=== PATIENT | female | born 1935 | race Caucasian/White ===

== ENCOUNTER 2019-12-22 06:49 | Day surgery (SDC) | payer MEDICARE ==
[~2019-12-22] VITALS: Ht 157.5 cm; Wt 72.6 kg
[~2019-12-22 06:49] MED LIST: SODIUM CHLORIDE 0.9% 1000ML 1,000 ML IV ONE
[2019-12-22 07:45] VITALS: BP 183/91; PULSE 87; RESP 17; TEMP 97.1
[2019-12-22] MEDS ORDERED: PROPOFOL 10 MG/ML 20ML VIAL IV ONE (09:41)
[2019-12-22 10:01] VITALS: BP 124/46; PULSE 60; RESP 20; TEMP 97.3
[2019-12-22 10:06] VITALS: BP 129/51; PULSE 66; RESP 16
[2019-12-22 10:11] VITALS: BP 140/53; PULSE 64; RESP 18
[2019-12-22 10:20] VITALS: BP 135/63; PULSE 60; RESP 18
== END 2019-12-22 10:38 | disposition home or self-care (01) ==
LOC: DAH 06:49
PROVIDERS: ATTEND Internal Medicine Gastroenterology
DX: Z09 Encounter for follow-up examination after completed treatment for conditions other than malignant neoplasm (principal); D12.5 Benign neoplasm of sigmoid colon; Z86.010 Personal history of colon polyps; I10 Essential (primary) hypertension; I48.91 Unspecified atrial fibrillation; E78.5 Hyperlipidemia, unspecified; Z90.710 Acquired absence of both cervix and uterus; Z80.0 Family history of malignant neoplasm of digestive organs; Z11.59 Encounter for screening for other viral diseases
CPT/HCPCS: 36415; 45380; 88305; 93005; A4215; A4221; A4222; A4223; A4606; A4615; A4663; J2704; J7030; U0003